=== PATIENT | female | born 1970 | race Caucasian/White ===

== ENCOUNTER 2020-08-24 09:48 | Outpatient (REF) | payer MEDICAID, SELFPAY ==
--- NOTE | 2020-08-24 09:53 | MM_ITS ---
EXAMINATION: MM SCREENING DIGITAL BREAST TOMOSYNTHESIS, BILATERAL CLINICAL INFORMATION: Screening. Asymptomatic. The lifetime risk of breast cancer based on the Tyrer-Cuzick Model is 7%. COMPARISON: Mammography: 08/19/2019, 08/11/2018, 12/03/2016 TECHNIQUE: Digital breast tomosynthesis is performed in both the craniocaudal and mediolateral oblique views along with computer-aided detection (CAD). Synthesized 2D images are generated from the tomosynthesis. Additional right CC view is provided. FINDINGS: The breasts are extremely dense, which lowers the sensitivity of mammography (ACR BI-RADS breast composition Category d). Parenchymal pattern is similar to prior studies. There is no interval mass or architectural abnormality or abnormal calcifications. There is a biopsy clip marker again seen on right overlying oval area of asymmetry 5:30 o'clock position mid depth. Low right axillary tail node again seen upper right breast on MLO view. The skin contours are smooth. No significant changes. MM/MM tomosynthesis screening BI IMPRESSION: No significant changes from prior studies. ASSESSMENT: BI-RADS 2: Benign RECOMMENDATION: Routine annual mammography screening. This patient's information was entered into a reminder system with a target due date for their next mammogram.
== END 2020-08-24 09:49 | disposition home or self-care (01) ==
LOC: HO.MAMMO 09:48
PROVIDERS: PCP Nurse Practitioner Family; Visit Provider Nurse Practitioner Family
DX: Z12.31 Encounter for screening mammogram for malignant neoplasm of breast (principal)
CPT/HCPCS: 77063; 77067

== ENCOUNTER 2021-09-06 09:27 | Outpatient (REF) | payer MEDICAID, SELFPAY | END 2021-09-06 09:28 | disposition home or self-care (01) | LOC: HO.MAMMO 09:27 | PROVIDERS: PCP Internal Medicine; Visit Provider Internal Medicine | DX: Z13.89 Encounter for screening for other disorder (principal) ==

== ENCOUNTER 2021-10-18 09:00 | Outpatient (REF) | payer MEDICAID, SELFPAY ==
--- NOTE | ~2021-10-18 | MM_ITS ---
EXAMINATION: MM SCREENING DIGITAL BREAST TOMOSYNTHESIS, BILATERAL CLINICAL INFORMATION: Screening. Asymptomatic. Benign right ultrasound-guided biopsy 08/02/2015 (Apocrine microcysts and focal mild active chronic pericystic inflammation). The lifetime risk of breast cancer based on the Tyrer-Cuzick Model is 6%. COMPARISON: Mammography: 08/24/2020, 08/19/2019, 08/11/2018 TECHNIQUE: Digital breast tomosynthesis is performed in both the craniocaudal and mediolateral oblique views along with computer-aided detection (CAD). Synthesized 2D images are generated from the tomosynthesis. Additional right MLO view is provided. FINDINGS: The breasts are extremely dense, which lowers the sensitivity of mammography (ACR BI-RADS breast composition Category d). Biopsy clip marker overlying a smooth oval mass again noted right breast mid 5:30 o'clock position. Neither breast shows interval mass or architectural abnormality or abnormal calcifications. Parenchymal pattern is similar to prior studies. The axilla and skin contours are unremarkable. MM/MM tomosynthesis screening BI IMPRESSION: No significant changes from prior studies. ASSESSMENT: BI-RADS 2: Benign RECOMMENDATION: Routine annual mammography screening. This patient's information was entered into a reminder system with a target due date for their next mammogram.
== END 2021-10-18 09:01 | disposition home or self-care (01) ==
LOC: HO.MAMMO 09:00
PROVIDERS: PCP Internal Medicine; Visit Provider Internal Medicine
DX: Z12.31 Encounter for screening mammogram for malignant neoplasm of breast (principal)
CPT/HCPCS: 77063; 77067

== ENCOUNTER → 2022-09-17 11:40 | Outpatient (BNVA) | payer MEDICAID, SELFPAY | PROVIDERS: Visit Provider Student in an Organized Health Care Education/Training Program | DX: M65.4 Radial styloid tenosynovitis [de Quervain] (principal) | CPT/HCPCS: 99202 ==

== ENCOUNTER 2022-10-31 08:46 | Outpatient (REF) | payer MEDICAID, SELFPAY ==
--- NOTE | ~2022-10-31 | MM_ITS ---
EXAMINATION: MM SCREENING DIGITAL BREAST TOMOSYNTHESIS, BILATERAL CLINICAL INFORMATION: Screening. Asymptomatic. The lifetime risk of breast cancer based on the Tyrer-Cuzick Model is 6%. COMPARISON: Mammography: 10/18/2021, 08/24/2020, 08/19/2019, 08/11/2018 TECHNIQUE: Digital breast tomosynthesis is performed in both the craniocaudal and mediolateral oblique views along with computer-aided detection (CAD). Synthesized 2D images are generated from the tomosynthesis. FINDINGS: The breasts are extremely dense, which lowers the sensitivity of mammography (ACR BI-RADS breast composition Category d). Parenchymal pattern is similar to prior studies. There is biopsy clip marker again seen anterior lower inner right breast. Parenchymal pattern is similar to prior studies with scattered stable asymmetries. No developing density or architectural abnormality or abnormal calcifications. The axilla and skin contours are unremarkable. MM/MM tomosynthesis screening BI IMPRESSION: No mammographic evidence of malignancy. ASSESSMENT: BI-RADS 2: Benign RECOMMENDATION: Routine annual mammography screening. This patient's information was entered into a reminder system with a target due date for their next mammogram.
== END 2022-10-31 08:47 | disposition home or self-care (01) ==
LOC: HO.MAMMO 08:46
PROVIDERS: Visit Provider Internal Medicine
DX: Z12.31 Encounter for screening mammogram for malignant neoplasm of breast (principal)
CPT/HCPCS: 77063; 77067

== ENCOUNTER 2023-08-23 18:19 | Outpatient (REF) | payer MEDICAID, SELFPAY ==
[2023-08-27 08:53] LABS: HPV mRNA E6/E7 rflx Not Detected (Not Detected)
== END 2023-08-23 18:20 | disposition home or self-care (01) ==
LOC: HO.HHCLNP 18:19
PROVIDERS: Visit Provider Advanced Practice Midwife
DX: Z12.4 Encounter for screening for malignant neoplasm of cervix (principal); Z11.51 Encounter for screening for human papillomavirus (HPV)
CPT/HCPCS: 87624; 88142

== ENCOUNTER 2023-11-06 08:49 | Outpatient (REF) | payer MEDICAID, SELFPAY ==
--- NOTE | ~2023-11-06 | MM_ITS ---
EXAMINATION: MM SCREENING DIGITAL BREAST TOMOSYNTHESIS, BILATERAL CLINICAL INFORMATION: Screening. Asymptomatic. COMPARISON: Mammography: This study is compared with prior exams dating back to 2018. TECHNIQUE: Digital breast tomosynthesis is performed in both the craniocaudal and mediolateral oblique views along with computer-aided detection (CAD). Synthesized 2D images are generated from the tomosynthesis. FINDINGS: The breasts are extremely dense, which lowers the sensitivity of mammography (ACR BI-RADS breast composition Category d). There are no significant masses, abnormal calcifications, or other abnormalities. There is a biopsy tissue marker in an oval, benign mass at the 6:00 region of the right breast. MM/MM tomosynthesis screening BI IMPRESSION: No mammographic evidence of malignancy. ASSESSMENT: BI-RADS BI-RADS 2 - Benign Findings RECOMMENDATION: Routine annual mammography screening. 1 year F/U This examination should not preclude the clinical evaluation of a suspicious palpable abnormality. This patient's information was entered into a reminder system with a target due date for their next mammogram.
== END 2023-11-06 08:50 | disposition home or self-care (01) ==
LOC: HO.MAMMO 08:49
PROVIDERS: Absent Provider Advanced Practice Midwife; Visit Provider Internal Medicine
DX: Z12.31 Encounter for screening mammogram for malignant neoplasm of breast (principal)
CPT/HCPCS: 77063; 77067

== ENCOUNTER → 2023-11-06 09:00 | Outpatient (BNV) | payer MEDICAID, SELFPAY | PROVIDERS: Absent Provider Advanced Practice Midwife; Visit Provider Radiology Diagnostic Radiology | DX: Z12.31 Encounter for screening mammogram for malignant neoplasm of breast (principal) | CPT/HCPCS: 77063; 77067 ==

== ENCOUNTER 2024-09-08 11:31 | Outpatient (REF) | payer MEDICAID, SELFPAY ==
[2024-09-08 13:32] LABS: Anion Gap 10 (12-20); Blood Urea Nitrogen 9 mg/dL (9-16); Calcium 9.7 mg/dL (8.4-10.2); Carbon Dioxide 27 mmol/L (22-29); Chloride 108 mmol/L (96-108); Estimated Glomerular Filt Rate > 60; Glucose Random 109 mg/dL (60-115); Sodium 141 mmol/L (135-145)
[2024-09-08 13:35] LABS: Estimated Average Glucose 128 mg/dL; Hemoglobin A1C 156.2119 umol/L; Hemoglobin A1c % 6.1 % (<6.0); Total Hemoglobin (HGBA1C) 3662.0372 umol/L
== END 2024-09-08 11:32 | disposition home or self-care (01) ==
LOC: HO.HHCL 11:31
PROVIDERS: Visit Provider Nurse Practitioner
DX: R73.03 Prediabetes (principal)
CPT/HCPCS: 36415; 80048; 83036

== ENCOUNTER 2024-12-27 10:01 | Outpatient (REF) | payer MEDICAID, SELFPAY ==
--- OUTSIDE RECORDS SUMMARY | 2024-12-27 11:26 | XMS_ITS | Clinical Summary ---
Author Organization [address] [facility] Address [address] [place] [address] Phone Care Team Providers Care Base Draw Operator Name Role Phone Physician, No Pcp Primary Care Provider Unavaila ble Encounters Date Type Department Care Team Description 11/24/2024 Lab Requisition [facility] - Main Lab [address] [facility] [place] [address] Tarun Lopez DDS Cyst of oral region, unspecified from Last 3 Months Social History Tobacco Use Types Packs/Day Years Used Date Smoking Tobacco: Never Assessed Comments Unknown Sex and Gender Information Value Date Recorded Sex Assigned at Not on file Legal Sex Female 12:39 PM EST Gender Identity Not on file Sexual Orientation Not on file Plan of Treatment Health Maintenance Due Date Last Done Comments Breast Cancer Screening 1968 DTaP,Tdap,and Td Vaccines (1 - Tdap) 1987 Hepatitis B Vaccines (1 of 3 - 19+ 3-dose series) 1987 Cervical Cancer Screening: P ap Smear 1989 Pneumococcal Vaccine: 50+ Ye ars (1 of 1 - PCV) 2018 Zoster Vaccines (1 of 2) 2018 COVID-19 Vaccine ( - 2023-2 5 season) 2024 Influenza Vaccine (#1) 2024 Colorectal Cancer Screening: Colonoscopy 11/24/2024 Depression Screening 11/24/2024 HIV Screening 11/24/2024 Hepatitis C Screening 11/24/2024 Social Influencers of Health Screening 11/24/2024 HIB Vaccines Aged Out No longer eligi ble based on patient's age to complete this topic HPV Vaccines Aged Out No longer eligi ble based on patient's age to complete this topic Hepatitis A Vaccines Aged Out No long er eligible based on patient's age to complete this topic IPV Vaccines Aged Out No longer eligi ble based on patient's age to complete this topic MMR Vaccines Aged Out No longer eligi ble based on patient's age to complete this topic Meningococcal ACWY Vaccine Aged Out N o longer eligible based on patient's age to complete this topic Meningococcal B Vacine Aged Out No lo nger eligible based on patient's age to complete this topic Pneumococcal Vaccine: Pediat rics (0 to 5 Years) and At-Risk Patients (6 to 64 Years) Aged Out No longer eligible b ased on patient's age to complete this topic RSV Immunization Patients Un anabela 20 months Aged Out No longer eligible b ased on patient's age to complete this topic Varicella Vaccines Aged Out No longer eligible based on patient's age to complete this topic Procedures Procedure Name Priority Date/Time Associated Diagnosis Comments TISSUE EXAM Routine 11/23/2024 Cyst of oral region, unspecified from Last 3 Months Results * Tissue Exam (11/23/2024) Final Diagnosis Oral Cavity, vestibular ridge/buccal of #28 cyst: -BENIGN UNILOCULAR SQUAMOUS CYST, RUPTURED, INFLAMMED -GMS stain: negative (Control appropriate) 12:16 PM [facility] Clinical Information Oral mucosa, buccal cervical of t. #28 54 y.o. female - no recent illness, injury or hospitalization Cyst found on the vestibular ridge/buccal of #28 12:16 PM EST [facility] Gross Description A. Oral Cavity, vestibular ridge/buccal of #28 cyst: Labeled oral mucosa . Received in formalin is a 1.1 x 0.5 x 0.3 cm white-stewart rubbery tissue fragment surface by a smooth, glistening mucosa. The specimen is inked blue and bisected. The cut surfaces are [id number] solid. The specimen is wrapped in paper and entirely submitted one cassette, two pieces, multiple levels on one slide. KIMMIE 12:16 PM [facility] Disclaimer NOTE: The immunohistochemical tests and in situ hybridization tests were developed and their performance characteristics were determined by [facility]. They have not been cleared or approved by the U.S. Food and Drug Administration. The FDA has determined that such clearance or approval is not necessary. These tests are used for clinical purposes. They should not be regarded as investigational or for research. This laboratory is certified under the Clinical Laboratory Improvement Amendments of 1988 (CLIA) as qualified to perform high complexity clinical laboratory testing. (controls appropriate) Unless otherwise specified, all tissue is 10% NB formalin fixed and paraffin embedded. 12:16 PM EST [facility] Tissue Oral cavity structure / Unknown 11/23/2024 11/24/2024 12:49 PM EST us Tarun Lopez DDS LAB PATHOLOGY ORDERABLES Fin al Result [facility] [address] [place] [address], from Last 3 Months Insurance MEDICAID - [place] Care Teams Base Draw Operator Relationship Specialty Start Date End Date Physician, No Pcp PCP - General 11/27/24
--- OUTSIDE RECORDS SUMMARY | 2024-12-27 11:26 | XMS_ITS | Encounter Summary ---
Author Organization [facility] Address [address] [place] [address] Care Team Providers Care Computer Support Analyst Name Role Phone Physician, No Pcp Primary Care Provider Unavaila ble Encounter Details Date Type Department Care Team (Late st Contact Info) Description 11/24/2024 Lab Requisition [facility] - Main Lab [address] [facility] [place] [address] Tarun Lopez DDS [address] [place] [address] Cyst of oral region, unspecified Social History Tobacco Use Types Packs/Day Years Used Date Smoking Tobacco: Never Assessed Comments Unknown Sex and Gender Information Value Date Recorded Sex Assigned at Not on file Legal Sex Female 12:39 PM EST Gender Identity Not on file Sexual Orientation Not on file documented as of this encounter Plan of Treatment Not on file documented as of this encounter Procedures Procedure Name Priority Date/Time Associated Diagnosis Comments TISSUE EXAM Routine 11/23/2024 Cyst of oral region, unspecified documented in this encounter Results * Tissue Exam (11/23/2024) Final Diagnosis Oral Cavity, vestibular ridge/buccal of #28 cyst: -BENIGN UNILOCULAR SQUAMOUS CYST, RUPTURED, INFLAMMED -GMS stain: negative (Control appropriate) 12:16 PM EST [facility] Clinical Information Oral mucosa, buccal cervical of t. #28 54 y.o. female - no recent illness, injury or hospitalization Cyst found on the vestibular ridge/buccal of #28 12:16 PM EST [facility] Gross Description A. Oral Cavity, vestibular ridge/buccal of #28 cyst: Labeled oral mucosa . Received in formalin is a 1.1 x 0.5 x 0.3 cm white-stewart rubbery tissue fragment surface by a smooth, glistening mucosa. The specimen is inked blue and bisected. The cut surfaces are [id number] solid. The specimen is wrapped in paper and entirely submitted one cassette, two pieces, multiple levels on one slide. KIMMIE 12:16 PM EST [facility] Disclaimer NOTE: The immunohistochemical tests and in situ hybridization tests were developed and their performance characteristics were determined by [facility]. They have not been [...] fixed and paraffin embedded. 12:16 PM EST [facility] Tissue Oral cavity structure / Unknown 11/23/2024 11/24/2024 12:49 PM EST Tarun Lopez DDS LAB PATHOLOGY ORDERABLES Fin al Result [facility] [address] [place] [address], documented in this encounter Visit Diagnoses Diagnosis Cyst of oral region, unspecified documented in this encounter Care Teams Computer Support Analyst Relationship Specialty Start Date End Date Physician, No Pcp PCP - General 11/27/24 documented as of this encounter
--- OUTSIDE RECORDS SUMMARY | 2024-12-27 11:27 | XMS_ITS | Encounter Summary ---
Author Organization [employer] Address [address] [facility] [address] [place] [address] Care Team Providers Care Digital Designer Name Role Phone Diana Clements NP Primary Care Provider [phone] Reason for Visit * Reason Onset Date Comments chartprep 12/06/2024 Encounter Details Date Type Department Care Team (Late st Contact Info) Description 12/06/2024 Telephone [facility] [address] [place] [address] Ashlyn Johnson [place] chartprep Social History Tobacco Use Types Packs/Day Years Used Date Smoking Tobacco: Never Passive Smoke Exposure: Never Smokeless Tobacco: Never Alcohol Use Standard Drinks/Week Comments Yes 0 (1 standard drink = 0.6 oz pur e alcohol) Alcohol Answer Date Recorded How often do you have a drink containing alcohol ? 1 09/08/2024 How many drinks containing a lcohol do you have on a typical day when you are drinking? 0 09/08/2024 How often do you have six or more drinks on one occasion? 0 09/08/2024 Depression Answer Date Recorded Patient Health Questionnaire-9 Score 0 08/09/2024 Patient Health Questionnaire-9 Score 0 08/09/2024 Last PHQ-9: Questionnaire Data Not on file 1 10/09/2023 Housing Stability Answer Date Recorded What is your housing situation today? I have lupe kwok 08/09/[address] you li ve. Do you have problems with any of the following? None of the above 08/09/2024 Food Insecurity Answer Date Recorded Within the past 12 months, y ou worried that your food would run out before you got money to buy more: Never True 08/09/2024 Within the past 12 months,th e food you bought just didn't last and you didn't have enough money to get more: Never True 03/2024 Transportation Answer Date Recorded In the past 12 months, has l ack of transportation kept you from medical appts, meetings, work or from getting things needed for daily living? No 08/09/2024 Utilities Answer Date Recorded In the past 12 months, has t he electric, gas, oil or water company threatened to shut off services in your home? No 08/09/2024 Depression Answer Date Recorded Patient Health Questionnaire-2 Score 0 08/09/2024 Internet Access Answer Date Recorded Internet Access Q1 Yes 08/09/2024 Internet Access Q2 Not on file 08/09/2024 Comments No Sex and Gender Information Value Date Recorded Sex Assigned at Female 08/03/2022 10:17 AM EDT Legal Sex Female 10:17 AM EDT Gender Identity Female 08/03/2022 10:17 AM EDT Sexual Orientation Straight 08/03/2022 10 :17 AM EDT documented as of this encounter Miscellaneous Notes * Telephone Encounter - Ashlyn Johnson [place] - 12/06/2024 10:55 AM EST Chart Prep Labs: done except cologuard screening Images: not done BD dexa and mammogram order Vaccines due: yes Pneumo,Hep B Referrals: no showed on 09/14/24-09/15/24 Screenings: colonoscopy , mammogram Overdue care gaps: n/a documented in this encounter Plan of Treatment Upcoming Encounters Date Type Department Care Team (Late st Contact Info) Description 12/28/2024 8:00 AM EDT Office Visit [facility] [address] [place] [address] Tarun Lopez DDS [address] [place] [address] 01/08/2025 3:30 PM EDT Office Visit [facility] ADULT DENTAL [address] [place] [address] Sim Emerson DMD [address] [place] [address] documented as of this encounter Visit Diagnoses Not on filedocumented in this encounter Additional Health Concerns Assessment Noted Time PHQ-9 Depression Total Score: 0 08/09/20 24 9:06 AM EST documented as of this encounter Care Teams Digital Designer Relationship Specialty Start Date End Date Diana Clements NP [address] [place] [id number] PCP - General Family Medicine 07/20/24 documented as of this encounter
--- OUTSIDE RECORDS SUMMARY | 2024-12-27 11:27 | XMS_ITS | Encounter Summary ---
Author Organization [employer] Address [address] [facility] [address] [facility] [address] [place] [address] Care Team Providers Care Security Messenger Name Role Phone Diana Clements NP Primary Care Provider [phone] Encounter Details Date Type Department Care Team (Latest Contact Info) Description 12/08/2024 Travel Social History Tobacco Use Types Packs/Day Years [...] AM EDT documented as of this encounter Plan of Treatment Upcoming Encounters Date Type Department Care Team (Late st Contact Info) Description 12/28/2024 8:00 AM EDT Office Visit [facility] ADULT DENT[facility] [address] [place] [address] Tarun Lopez DDS [address] [place] [address] 01/08/2025 3:30 PM EDT Office Visit [facility] ADULT [facility] [address] [place] [address] Sim Emerson, DMD [address] [place] [address] documented as of this encounter Visit Diagnoses Not on filedocumented in this encounter Additional Health Concerns Assessment Noted Time PHQ-9 Depression Total Score: 0 08/09/20 24 9:06 AM EST documented as of this encounter Care Teams Security Messenger Relationship Specialty Start Date End Date Diana Clements NP [address] [place] [address] PCP - General Family Medicine 07/20/24 documented as of this encounter
--- OUTSIDE RECORDS SUMMARY | 2024-12-27 11:27 | XMS_ITS | Encounter Summary ---
Author Organization [employer] [facility] [employer] Address [address] [facility] [address] [place] [address] Care Team Providers Care Receptionist/Telephone Operator Name Role Phone Diana Clements NP Primary Care Provider [phone] Encounter Details Date Type Department Care Team ([facility] st Contact Info) Description 12/15/2024 Population Health Risk Score [facility] (C[facility]) Department [address] [address] Provider, Population Health Generic Social History Tobacco Use Types Packs/Day Years [...] Description 12/28/2024 8:00 AM EDT Office Visit [facility] ADULT DENTAL [address] [place] [address] Tarun Lopez DDS [address] [place] [address] 01/08/2025 3:30 PM EDT Office Visit [facility] ADULT DENTAL [address] [place] [address] Sim Emerson, DMD [address] [place] [address] documented as of this encounter Visit Diagnoses Not on filedocumented in this encounter Additional Health Concerns Assessment Noted Time PHQ-9 Depression Total Score: 0 08/09/20 9:06 AM EST documented as of this encounter Care Teams Receptionist/Telephone Operator Relationship Specialty Start Date End Date Diana Clements NP [address] [place] [address] PCP - General Family Medicine 07/20/24 documented as of this encounter
--- OUTSIDE RECORDS SUMMARY | 2024-12-27 11:27 | XMS_ITS | Encounter Summary ---
Author Organization [employer] Address [address] [facility] 7 [place] [address] Care Team Providers Care Staff Physician Name Role Phone Diana Clements NP Primary Care Provider [phone] Reason for Visit * Reason Comments Follow-up Encounter Details Date Type Department Care Team ([facility] Contact Info) Description 12/08/2024 10:00 AM EST Office Visit [facility] [address] [place] [address] Diana Clements NP [address] [place] [address] Routine adult health maintenance (Primary Dx); Prediabetes; Dietary counseling; Exercise counseling; Hypercholesterolemia Social History Tobacco Use Types Packs/Day Years [...] AM EDT documented as of this encounter Last Filed Vital Signs Vital Sign Reading Time Taken Comments Blood Pressure 130/82 12/08/2024 9:59 AM EST Pulse 82 12/08/2024 9:59 AM EST Temperature 37 ??C (98.6 ??F) 12/08/2024 9:59 AM EST Respiratory Rate 18 12/08/2024 9:59 AM EST Oxygen Saturation 97% 12/08/2024 9:59 AM EST Inhaled Oxygen Concentration - - Weight 65.1 kg (143 lb 9.6 oz) 12/08/2024 9:59 A M EST Height 154.9 cm (5' 1 ) 12/08/2024 9:59 AM EST Body Mass Index 27.13 12/08/2024 9:59 AM EST documented in this encounter Progress Notes * Diana Clements NP - 12/08/2024 10:00 AM EST Subjective: Cece Luna 54 y.o. female with past medical history of hypercholesterolemia, prediabetes presents for health maintenance. Denies recent illness, injury, or hospitalization. HPI Doing well overall. Has no acute complaints at this time. States the only medication she is taking at this time consistently is rosuvastatin. She is decided to not take the paroxetine prescribed for menopausal symptoms. Completed 09/26 revealed mildly elevated A1c of 6.1% compared to 6% 2 years ago. Patient reports engaging in exercises 2x per week for 15 min. Diet: rice beans, chicken, porkchop, salad. Cooks at home. Drinks coke 3x a week. Previously ordered mammogram and DEXA screening not completed. States she has an appointment for mammogram in 2 weeks. But missed the appointment for DEXA scan. Review of Systems Constitutional: Negative. Negative for chills and fever. Respiratory: Negative for chest tightness and shortness of breath. Cardiovascular: Negative for chest pain. Gastrointestinal: Negative for abdominal pain, constipation, diarrhea and nausea. Genitourinary: Negative for dysuria. Musculoskeletal: Negative for arthralgias, back pain, myalgias and neck pain. Skin: Negative. Negative for rash and wound. Neurological: Negative for weakness, light-headedness and headaches. Psychiatric/Behavioral: Negative for behavioral problems, confusion, decreased concentration and suicidal ideas. Objective: Visit Vitals BP 130/82 (BP Location: Left arm, Patient Position: Sitting, BP Cuff Size: Adult) Pulse 82 Temp 98.6 ??F (37 ??C) (Oral) Resp 18 Patient Active Problem List Diagnosis Hypercholesterolemia Vitamin D deficiency Dental abscess Dental calculus Periodontal disease Acute otitis media Screening for colon cancer Encounter for annual routine gynecological examination Encounter for routine adult health examination without abnormal findings Hot flashes due to menopause Prediabetes Lateral radicular cyst Retained dental root Current Outpatient Medications on File Prior to Visit Medication Sig Dispense Refill acetaminophen (Tylenol) 500 MG tablet Take 1 tablet (500 mg) by mouth every 6 (six) hours if neededfor mild pain for up to 20 doses. (Patient not taking: Reported on 12/05/2024) 30 tablet 0 cholecalciferol (Vitamin D-3) 20 MCG (800 UNIT) tablet Take 1 tablet (20 mcg) by mouth Once per day. 30 tablet 3 ibuprofen 600 MG tablet Take 1 tablet (600 mg) by mouth every 6 (six) hours if needed for mild painfor up to 20 doses. (Patient not taking: Reported on 12/05/2024) 20 tablet 0 rosuvastatin (Crestor) 5 MG tablet TAKE 1 TABLET BY MOUTH AT BEDTIME (Patient not taking: Reported on 12/05/2024) 90 tablet 1 [DISCONTINUED] PARoxetine (Paxil) 10 MG tablet Take 1 tablet (10 mg) by mouth at bedtime. (Patient not taking: Reported on 12/05/2024) 30 tablet 2 No current facility-administered medications on file prior to visit. Physical Exam Vitals reviewed. Constitutional: General: She is not in acute distress. Appearance: Normal appearance. She is not ill-appearing. HENT: Head: Normocephalic and atraumatic. Right Ear: External ear normal. Left Ear: External ear normal. Nose: Nose normal. Eyes: General: No scleral icterus. Extraocular Movements: Extraocular movements intact. Cardiovascular: Rate and Rhythm: Normal rate and regular rhythm. Pulses: Normal pulses. Heart sounds: Normal heart sounds. Pulmonary: Effort: Pulmonary effort is normal. No respiratory distress. Breath sounds: Normal breath sounds. Musculoskeletal: General: Normal range of motion. Cervical back: Normal range of motion. Skin: General: Skin is warm and dry. Neurological: General: No focal deficit present. Mental Status: She is alert and oriented to person, place, and time. Gait: Gait normal. Psychiatric: Mood and Affect: Mood normal. Behavior: Behavior normal. Problem List Items Addressed This Visit Hypercholesterolemia -Continue rosuvastatin 5 mg despite stable lipids in 2021 as primary prevention -Discussed repeat labs at follow-up visit in 6 months Prediabetes -Discussed medication management with metformin, and nonpharmacological management with diet and exercise -Patient declined medications, would rather engage in diet and exercise modifications -Declined nutrition referral -Dietary Recommendations: Fruits, vegetables, whole grains, protein foods, and fat-free or low-fat dairy products are healthychoices. Eat different types of protein foods in your diet. This can include seafood, lean meats, poultry, beans, peas, lentils, nuts, seeds, soy products, and eggs. Limit foods and beverages higher in added sugars, saturated fat, and sodium. Exercise Recommendations: At least 150 minutes of moderate-intensity physical activity per week, or an equivalent combinationof moderate- and vigorous-intensity activity -Plan to recheck A1c in 6 months Other Visit Diagnoses Routine adult health maintenance - Primary -Provided phone number for central scheduling to schedule DEXA scan appointment -Previously ordered Cologuard not completed. revisit discussion at follow-up Dietary counseling Exercise counseling Follow-up 6 months routine care or sooner as needed Belgian Translation: Provided by [facility] [employer] Technical Architect Phone Service Romel ID # [id number] documented in this encounter Miscellaneous Notes * Patient Education Note - Diana Clements NP - 12/08/2024 3:16 PM EST Images from the original note were not included. Patient Education Table of Contents Plan de alimentaci?n cardiosaludable (Heart-Healthy Eating Plan) To view videos and all your education online visit, [email or web address] or scan this QR code with your smartphone. Access to this content will in one year. Plan de alimentaci?n cardiosaludable Heart-Healthy Eating Plan Llevar caden dieta saludable es importante para la talha del coraz?n. Un plan de alimentaci?n cardiosaludable incluye: Consumir menos grasas no saludables. Consumir m?s grasas saludables. Consumir menos binh en los alimentos. La binh tambi?n se denomina sodio. Realizar otros cambios en ferguson dieta. Hable con el m?dico o con un especialista en alimentaci?n (nutricionista) para crear un plan de alimentaci?n que sea adecuado para usted. ?En qu?? consiste el plan? El m?dico puede recomendarle un plan de alimentaci?n que incluya lo siguiente: Grasas totales: % o menos del total de calor?as por d?a. Grasas saturadas: % o menos del total de calor?as por d?a. Colesterol: menos de mg por d?a. Sodio: menos de mg al d?a. ?Cu?les son algunos consejos para seguir myesha plan? Al cocinar Evite irving?r los alimentos. En cambio, trate de cocinarlos en el horno, en la plancha o en la reji, o hervirlos. Tambi?n puede reducir las grasas de la siguiente forma: Quite la piel de las aves. Quite todas las grasas visibles de las kali. Cocine al vapor las verduras en agua o caldo. Planificaci?n de las comidas En las comidas, divida ferguson plato en cuatro partes iguales: ? Llene la mitad del plato con verduras y ensaladas de hojas verdes. ? Llene un cuarto del plato con cereales integrales. ? Llene un cuarto del plato con alimentos con prote?duc magras. De 2? a 4 tazas de verduras por d?a. Caden taza de verduras es: ? 1 taza (91?g) de br?coli o coliflor. ? 2 zanahorias medianas. ? 1 pimiento morr?n ivette. ? 1 batata ivette. ? 1 tomate ivette. ? 1 papa tatyana mediana. ? 2 tazas (150?g) de verduras de hojas verdes crudas. Coma de 1? a 2? tazas de fruta cada d?a. Caden taza de fruta es: ? 1 manzana luciano?a. ? 1 banana ivette ? 1 taza (237?g) de fruta mezclada, ? 1 naranja ivette, ? ??taza (82?g) de frutas disecadas. ? 1 taza (240?ml) de jugo 100?% de frutas. Consuma m?s alimentos que tengan fibra soluble. Ellos son las manzanas, el br?coli, las zanahorias,los frijoles, los guisantes y la cebada. Trate de consumir de 20?a 30?g de fibra por d?a. Coma 4 o 5?porciones de haylee secos, legumbres y semillas por semana: ? 1 porci?n de frijoles o legumbres secos equivale a ? de taza (90?g) cocinados. ? 1 porci?n de haylee secos es ? oz (12 almendras, 24 pistachos o 7 mitades de nueces). ? 1 porci?n de semillas equivale a ? oz (8?g). Informaci?n general Coma m?s comidas caseras. Coma menos comida de restaurantes, buf?s y comida r?pida. Limite o evite el alcohol. Limite los alimentos con alto contenido de almid?n y az?car. Evite las comidas fritas. Baje de peso si es necesario. Intente llevar un registro de la cantidad de binh (sodio) que ingiere. [place] es importante si tiene presi?n arterial terry. P?silverio a ferguson m?dico que le d?? m?s informaci?n al respecto. Trate de incorporar comidas vegetarianas cada semana. Grasas Elija las grasas saludables. Estas incluyen aceite de holbrook y de canola, semillas de sterling, nueces, almendras y semillas. Consuma m?s grasas omega-3. Estas incluyen salm?n, caballa, donnell, at?n, aceite de sterling y semillas de sterling molidas. Intente comer pescado al menos dos veces por semana. Tona las etiquetas de los alimentos. Evite los alimentos que contienen grasas trans o altas cantidades de grasas saturadas. Limite el consumo de grasas saturadas. ? Estas se encuentran frecuentemente en productos de origen animal, ralph kali, mantequilla y crema. ? Tambi?n se encuentran en alimentos de origen vegetal, ralph el aceite de hoover, el aceite de palmiste y el aceite de yenni. Evite los alimentos con aceites parcialmente hidrogenados. Estos tienen grasas trans. Entre los ejemplos, se incluyen margarinas en eryn, algunas margarinas untables, galletas dulces y saladas y otros productos horneados. ?Qu?? alimentos rodney comer? Frutas Frutas frescas, en conserva (en ferguson jugo natural) o frutas congeladas. Verduras Verduras frescas o congeladas (crudas, al vapor, asadas o grilladas). Ensaladas de hojas verdes. Cereales La mayor?a de los cereales. Elija cristopher siempre mis integral y cereales integrales. Arroz y pastas, incluido el arroz integral y las pastas elaboradas con mis integral. Kali y otras prote?duc Kali magras de res, ternera, cerdo y knight a las que se les haya quitado la grasa visible. Sumit y pavo sin piel. Todos los pescados y mariscos. Shiraz giovanna, herber, fais?n y ned. Claras de huevo o sustitutos del huevo bajos en colesterol. Porotos, guisantes y lentejas secos y tofu. Semillas y la mayor?a de los haylee secos. L?cteos Quesos descremados y semidescremados, entre ellos, ricota y mozzarella. Leche descremada o al 1?% que sea l?quida, en polvo o evaporada. Shawn de leche elaborado con leche semidescremada. Yogur descremado o semidescremado. Grasas y aceites Margarinas no hidrogenadas (sin grasas trans). Aceites vegetales, incluido el de soja, s?samo, girasol, holbrook, man?, c?rtamo, ma?z, canola y semillas de algod?n. Ali?os para ensalada o mayonesa elaborados con aceite vegetal. Bebidas Agua mineral. T?? y caf?. Gaseosas diet?milton. Dulces y postres Sorbete, gelatina y helado de frutas. Luciano?as cantidades de chocolate amargo. Limite todos los dulces y postres. Ali?os y condimentos Todos los ali?os y condimentos. Es posible que los productos que se enumeran m?s arriba no constituyan caden lista completa de los alimentos y las bebidas que puede chelsie. Consulte a un nutricionista para conocer m?s opciones. ?Qu?? alimentos rodney evitar? Frutas Fruta enlatada en cassie?bar espeso. Frutas con salsa de crema o mantequilla. Frutas fritas. Limite elconsumo de yenni. Verduras Verduras cocinadas con salsas de queso, crema o mantequilla. Verduras fritas. Cereales Panes elaborados con grasas saturadas o trans, aceites o leche entera. Croissants. Panecillos dulces. Rosquillas. Galletas con alto contenido de grasas, ralph las que contienen queso. Kali y otras prote?duc Kali grasas, ralph perros calientes, costillas de res, salchichas, tocino, asado de costillar o chulet?n. Fiambres con alto contenido de grasas, ralph elvis y mortadela. Caviar. Shiraz y ganso dom?sticos. V?sceras, ralph h?gado. L?cteos Crema, crema agria, queso crema y queso cottage con crema. Quesos enteros. Leche entera o al 2?% que sea l?quida, evaporada o condensada. Shawn de leche entero. Salsa de crema o queso con alto contenido de grasas. Yogur elaborado con leche entera. Grasas y aceites Grasa de carne o materia grasa. Scio de cacao, aceites hidrogenados, aceite de hoover, aceite de yenni, aceite de palmiste. Grasas y materias grasas s?lidas, incluida la grasa del tocino, el cerdo chuck, la manteca de cerdo y la mantequilla. Sustitutos no l?cteos de la crema. Aderezos para ensalada con queso o crema agria. Bebidas Refrescos regulares y jugos con agregado de az?car. Dulces y postres Glaseados. Pudin. Galletas dulces. Bizcochuelos. Pasteles. Chocolate con leche o chocolate french. Cassie?bares con mantequilla. Helados o bebidas elaboradas con helado con alto contenido de grasas. Esta no es caden lista completa de los alimentos y las bebidas que se deben evitar. Consulte a un nutricionista para obtener m?s informaci?n. Resumen La planificaci?n de las comidas cardiosaludables incluye comer menos grasas poco saludables, comer m?s grasas saludables y hacer otros cambios en ferguson dieta. Siga caden dieta equilibrada. Esta incluye frutas y verduras, productos l?cteos descremados o semidescremados, prote?duc magras, haylee secos y legumbres, cereales integrales y aceites y grasas cardiosaludables. Esta informaci?n no tiene ralph fin reemplazar el consejo del m?dico. Aseg?rese de hacerle al m?dicocualquier pregunta que tenga. Document Released: 2013-03-21 Document Updated: 2022-11-11 Document Reviewed: 2022-11-11 [employer] Patient Education ? 2024 [employer] * Assessment & Plan Note - Diana Clements NP - 12/08/2024 12:07 PM ESTAssociated Problem(s): Hypercholesterolemia -Continue rosuvastatin 5 mg despite stable lipids in 2021 as primary prevention -Discussed repeat labs at follow-up visit in 6 months * Assessment & Plan Note - Diana Clements NP - 12/08/2024 12:05 PM ESTAssociated Problem(s): Prediabetes -Discussed medication management with metformin, and nonpharmacological management with diet and exercise -Patient declined medications, would rather engage in diet and exercise modifications -Declined nutrition referral -Dietary Recommendations: Fruits, vegetables, whole grains, protein foods, and fat-free or low-fat dairy products are healthychoices. Eat different types of protein foods in your diet. This can include seafood, lean meats, poultry, beans, peas, lentils, nuts, seeds, soy products, and eggs. Limit foods and beverages higher in added sugars, saturated fat, and sodium. Exercise Recommendations: At least 150 minutes of moderate-intensity physical activity per week, or an equivalent combinationof moderate- and vigorous-intensity activity -Plan to recheck A1c in 6 months documented in this encounter Plan of Treatment Upcoming Encounters Date Type Department Care Team (Late st Contact Info) Description 12/28/2024 8:00 AM EDT Office Visit [facility] [address] [place] [address] Tarun Lopez DDS [address] [place] [address] 01/08/2025 3:30 PM EDT Office Visit [facility] [address] [place] [address] Sim Emerson, JASPER [address] [place] [address] documented as of this encounter Visit Diagnoses Diagnosis Routine adult health maintenance- Primary Prediabetes Other abnormal glucose Dietary counseling Dietary surveillance and counseling Exercise counseling Hypercholesterolemia Pure hypercholesterolemia documented in this encounter Additional Health Concerns Assessment Noted Time PHQ-9 Depression Total Score: 0 08/09/20 24 9:06 AM EST documented as of this encounter Care Teams Staff Physician Relationship Specialty Start Date End Date Diana Clements NP [address] [place] [address] PCP - General Family Medicine 07/20/24 documented as of this encounter
--- OUTSIDE RECORDS SUMMARY | 2024-12-27 11:27 | XMS_ITS | Encounter Summary ---
Author Organization [employer] Address [address] [facility] [address] [place] [address] Care Team Providers Care Paper Sorter And Counter Name Role Phone Diana Clements NP Primary Care Provider [phone] Reason for Visit * Reason Comments Consult Encounter Details Date Type Department Care Team ([facility] Contact Info) Description 12/11/2024 11:15 AM EDT Office Visit [facility] [address] [place] [address] Kinza Pena DMD Social History Tobacco Use Types Packs/Day Years [...] Sign Reading Time Taken Comments Blood Pressure 126/76 12/11/2024 11:24 AM EDT Pulse - - Temperature - - Respiratory Rate - - Oxygen Saturation - - Inhaled Oxygen Concentration - - Weight - - Height - - Body Mass Index - - documented in this encounter Progress Notes * Kinza Pena DMD - 12/11/2024 11:15 AM EDT Dental procedures in this visit D9450 - CASE PRESENTATION, DETAILED AND EXTENSIVE TREATMENT PLANNING D9310 - CONSULTATION - DIAGNOSTIC SERVICE PROVIDED BY DENTIST OR PHYSICIAN OTHER THAN REQUESTING DENTIST OR PHYSICIAN (Completed) Service provider: Kinza Pena DMD Billing provider: Sim Emerson DMD Patient ID: Cece Luna is a 54 y.o. female. Time Out: Date: 12/11/2024 Location: [facility] Tooth: #30 Procedure: Exam Verified the above with patient, wet process assistant head miller, and provider. Confirmed via patient's chart, intraorally and by radiographs. Knife Glazer: Yes. Language: Indonesian. Knife Glazer's Name: Dory Villarreal 54 y.o. y/o female presents for limited exam with Dr. Kinza Pena DMD Medical history: Reviewed in EHR Vitals: Blood pressure 126/76. Allergies: Reviewed in EHR Medications: Reviewed in EHR Radiographs taken: None CHIEF COMPLAINT: I was told I need a consult on my lower right tooth. Discussion: Patient presents to [facility] RE: ENDO consult #30. Patient not experiencing any pain at thistime. Tooth #30 contains MO amalgam and fractured ML cusp. No pain on palpation. Slight discomfort to percussion. Inconsistent response to endo ice. Fluctuant mass noted on the buccal surface of the gingiva adjacent to tooth #30. Non- draining abscess. BOP on all surfaces and 7mm pockets on B aspects. Perio-endo related infection. Tooth #30 recommended for RCT, post core and full coverage crown taoist. Explained to patient she has bone loss in the area due to the infection and if the RCT does not resolve the infection, EXT may be advised in the future. Patient understands and accepts all recommendations and wishes to move forward with the proposed treatment plan. All patient questions answered. Patient comfortable upon dismissal. NV: RCT #30 Provider: Dr. Kinza Pena DMD Dental Conveyor Weigher Operator: Dory Villarreal Attending: Dr. Sim Emerson DMD * Sim Emerson DMD - 12/11/2024 11:15 AM EDT Reviewed. Sim Emerson DMD documented in this encounter Plan of Treatment Upcoming Encounters Date Type Department Care Team (Late st Contact Info) Description 12/28/2024 8:00 AM EDT Office Visit [facility] [address] [place] [address] Tarun Lopez DDS [address] [place] [address] 01/08/2025 3:30 PM EDT Office Visit [facility] [address] [place] [address] Sim Emerson DMD [address] [place] [address] documented as of this encounter Procedures Procedure Name Priority Date/Time Associated Diagnosis Comments CONSULTATION - DIAGNOSTIC SERVICE PROVIDED BY DENTIST OR PHYSICIAN OTHER THAN REQUESTING DENTIST OR PHYSICIAN Routine 12/11/2024 11:15 AM EDT CASE PRESENTATION, DETAILED AND EXTENSIVE TREATMENT PLANNING Routine 12/11/2024 11:15 AM EDT documented in this encounter Visit Diagnoses Not on filedocumented in this encounter Additional Health Concerns Assessment Noted Time PHQ-9 Depression Total Score: 0 08/09/20 9:06 AM EST documented as of this encounter Care Teams Paper Sorter And Counter Relationship Specialty Start Date End Date Diana Clements NP [address] [place] [address] PCP - General Family Medicine 07/20/24 documented as of this encounter
--- OUTSIDE RECORDS SUMMARY | 2024-12-27 11:27 | XMS_ITS | Encounter Summary ---
Author Organization [employer] Address [address] [facility] [address] [place] [address] Care Team Providers Care Light Oil Operator Name Role Phone Diana Clements NP Primary Care Provider [phone] Reason for Visit * Reason Comments Extraction Encounter Details Date Type Department Care Team ([facility] Contact Info) Description 12/05/2024 8:00 AM EST Office Visit [facility] ADULT DENTAL [address] [place] [address] Tarun Lopez, DDS [address] [place] [address] Retained dental root (Primary Dx) Social History Tobacco Use Types Packs/Day Years [...] the past 12 months, has t he [employer], gas, oil or water company threatened to [...] Sign Reading Time Taken Comments Blood Pressure 126/78 12/05/2024 7:53 AM EST Pulse - - Temperature - - Respiratory Rate - - Oxygen Saturation - - Inhaled Oxygen Concentration - - Weight - - Height - - Body Mass Index - - documented in this encounter Progress Notes * Tarun Lopez DDS - 12/05/2024 8:00 AM EST Patient ID: Cece Simons is a 54 y.o. female. Time Out: Timeout Date: 12/05/24, Timeout Time: 0751 (ext on tooth#13) Location: [facility] Tooth: Maxilla and #13 and biopsy results Procedure: Extraction Verified the above with patient, legal administrative assistant, and provider. Confirmed via patient's chart, intraorally and by radiographs. Clearing Tub Worker: not applicable Chief Complaint Patient presents with Extraction Medical Hx: Vitals: Blood pressure 126/78. Past Medical History: Diagnosis Date Bleeding gums Dental abscess High cholesterol No known health problems Pre-diabetes Medications: Outpatient Encounter Medications as of 12/05/2024 Medication Sig Dispense Refill cholecalciferol (Vitamin D-3) 20 MCG (800 UNIT) tablet Take 1 tablet (20 mcg) by mouth Once per day. 30 tablet 3 acetaminophen (Tylenol) 500 MG tablet Take 1 tablet (500 mg) by mouth every 6 (six) hours if neededfor mild pain for up to 20 doses. (Patient not taking: Reported on 12/05/2024) 30 tablet 0 ibuprofen 600 MG tablet Take 1 tablet (600 mg) by mouth every 6 (six) hours if needed for mild painfor up to 20 doses. (Patient not taking: Reported on 12/05/2024) 20 tablet 0 PARoxetine (Paxil) 10 MG tablet Take 1 tablet (10 mg) by mouth at bedtime. (Patient not taking: Reported on 12/05/2024) 30 tablet 2 rosuvastatin (Crestor) 5 MG tablet TAKE 1 TABLET BY MOUTH AT BEDTIME (Patient not taking: Reported on 12/05/2024) 90 tablet 1 No facility-administered encounter medications on file as of 12/05/2024. Consent Obtained: The risks, benefits, indications, potential complications, and alternatives were explained to the patient and informed consent was obtained with good understanding. Treatment Provided: Dental procedures in this visit D7250 - REMOVAL OF RESIDUAL TOOTH ROOTS (CUTTING PROCEDURE) 13 (Completed) Service provider: Tarun Lopez DDS Billing provider: Tarun Lopez DDS [id number] - CASE PRESENTATION, DETAILED AND EXTENSIVE TREATMENT PLANNING (Completed) Service provider: Tarun Lopez DDS Billing provider: Tarun Lopez DDS Diagnosis: Retained root # 13 ; Biopsy result # 28 buccal ridge = BENIGN UNILOCULAR SQUAMOUS CYST, RUPTURED, INFLAMED GMS stain: negative Topical: 20% Benzocaine Anesthesia: 2% Lidocaine (Xylocaine) w/ 1:100,000 epinephrine Number of Cartridges: 1 Injection Type: Buccal infiltration, Palatal infiltration, and Intrapapillary injection Confirmed profound anesthesia. Pharyngeal curtain and bite block placed. Removed tooth with elevators and forceps. Apices intact. Surgical Extraction: Yes, #13 Socket curetted & irrigated with sterile water. Compressed alveolar bone. Sutures: Chromic Gut All adjacent teeth intact. Hemostasis achieved. Complications: None. Pt tolerated procedure well. Pt states having analgesics at home. Written and verbal post-op instructions given. Patient discharged in stable condition; ambulatory, alert, and oriented. NV: F/U as needed / Referred to Dr. Mix Track Patrol: Yadira Joseph Dentist: Tarun Lopez DDS documented in this encounter Plan of Treatment Upcoming Encounters Date Type Department Care Team (Late st Contact Info) Description 12/28/2024 8:00 AM EDT Office Visit [facility] ADULT DENTAL [address] [place] [address] Tarun Lopez DDS [address] [place] [address] 01/08/2025 3:30 PM EDT Office Visit [facility] ADULT DENTAL [address] [place], [place] [phone] KandruSmi, DMD [address] [place] [address] documented as of this encounter Procedures Procedure Name Priority Date/Time Associated Diagnosis Comments 13 REMOVAL OF RESIDUAL TOOTH ROOTS (CUTTING PROCEDURE) Routine 12/05/2024 8:00 AM EST CASE PRESENTATION, DETAILED AND EXTENSIVE TREATMENT PLANNING Routine 12/05/2024 8:00 AM EST documented in this encounter Visit Diagnoses Diagnosis Retained dental root- Primary documented in this encounter Additional Health Concerns Assessment Noted Time PHQ-9 Depression Total Score: 0 08/09/20 9:06 AM EST documented as of this encounter Care Teams Light Oil Operator Relationship Specialty Start Date End Date Diana Clements NP [address] [place] [address] PCP - General Family Medicine 07/20/24 documented as of this encounter
--- OUTSIDE RECORDS SUMMARY | 2024-12-27 11:27 | XMS_ITS | Clinical Summary ---
Author Organization [employer] Address [address] [facility] [address] [place] [address] Care Team Providers Care Gill Box Fixer Name Role Phone Diana Clements NP Primary Care Provider [phone] Allergies Active Allergy Reactions Criticality Noted Date Comments Atorvastatin 12/22/2021 Other reaction(s): Myalgias Patient denies allergy to the medication Medications ibuprofen 600 MG tablet Take 1 tablet (600 mg) by mouth every 6 (six) hours if needed for mild pain for up to 20 doses. 20 tablet 01/07/20 24 Active Additional Information Patient not taking.Reported on 12/05/2024 acetaminophen (Tylenol) 500 MG tablet Take 1 tablet (500 mg) by mouth every 6 (six) hours if needed for mild pain for up to 20 doses. 30 tablet 07/05/20 24 Active Additional Information Patient not taking.Reported on 12/05/2024 rosuvastatin (Crestor) 5 MG tabletIndications: Hyperlipidemia, unspecified hyperlipidemia type TAKE 1 TABLET BY MOUTH AT BEDTIME 90 tablet 1 08/08/20 24 Active Additional Information Patient not taking.Reported on 12/05/2024 cholecalciferol (Vitamin D-3) 20 MCG (800 UNIT) tabletIndications: Hypovitaminosis D Take 1 tablet (20 mcg) by mouth Once per day. 30 tablet 3 09/08/20 24 025 Active amoxicillin (Amoxil) 500 MG capsule Take 1 capsule (500 mg) by mouth every 8 (eight) hours for 7 days. 21 capsule 12/26/19 25 025 Active PARoxetine (Paxil) 10 MG tabletIndications: Hot flashes due to menopause Take 1 tablet (10 mg) by mouth at bedtime. 30 tablet 2 09/08/20 24 025 Discontin ued(Patie nt refused) Active Problems Problem Noted Date Diagnosed Date Retained dental root 12/05/2024 Lateral radicular cyst 11/23/2024 Encounter for routine adult health examination without abnormal findings 09/08/2024 Hot flashes due to menopause 09/08/2024 Assessment & Plan (09/08/2024 1:12 PM EST): -discussed options for management with hormone therapy, herbal supplements, and integrative modalities after which she opted for pharm interventions -trial paroxetine over combi-patch per patients preference due to twice weekly changing of patches -medication side effects and monitoring discussed. Advised to call the clinic with any reactions and not to abruptly discontinue without medical advice -follow-up 6 weeks to assess dose effectiveness -patient verbalize understanding Prediabetes 09/08/2024 Assessment & Plan (12/08/2024 12:05 PM EST): -Discussed medication management with metformin, and nonpharmacological management with diet and exercise -Patient declined medications, would rather engage in diet and exercise modifications -Declined nutrition referral -Dietary Recommendations: Fruits, vegetables, whole grains, protein foods, and fat-free or low-fat dairy products are healthy choices. Eat different types of protein foods in your diet. This can include seafood, lean meats, poultry, beans, peas, lentils, nuts, seeds, soy products, and eggs. Limit foods and beverages higher in added sugars, saturated fat, and sodium. Exercise Recommendations: At least 150 minutes of moderate-intensity physical activity per week, or an equivalent combination of moderate- and vigorous-intensity activity -Plan to recheck A1c in 6 months Assessment & Plan (09/08/2024 1:14 PM EST): -A1c of 6% May 2022 -repeat testing ordered today -Healthy diet and exercise teaching completed: Eat a variety of fruit and vegetables, whole grains such as whole-wheat flour, bulgur (cracked wheat), oatmeal, and brown rice. Intake protein from beans, nuts, fish, and lean meats. Eat low-fat or fat- free dairy products. Limit highly processed foods such as hot dogs, sandwich meat, etc. Engage in minimum of 150 min of moderate intensity exercise weekly -will call with lab results Screening for colon cancer 08/09/2024 Assessment & Plan (08/09/2024 9:38 AM EST): Pt would like to proceed with cologard for screening, No personal history of colon polyps or colon cancer. No family history of colon cancer. Encounter for annual routine gynecological exami [facility] 08/09/2024 Assessment & Plan (08/09/2024 9:37 AM EST): Physical exam wnl Pap smear due 08/2026 Next mammo scheduled for 2024 Discussion regarding hot flashes, provided counseling surrounding treatment options for vasomotor symptoms, tx declined at this time but will discuss further if sx worsen. Plan to f/u with PCP for routine care in 09/2024 Acute otitis media 02/22/2024 Assessment & Plan (02/22/2024 10:14 AM EDT): Drink plenty of fluids and rest Alternate acetaminophen and ibuprofen PRN Augmentin for 7 days Dental abscess 01/07/2024 Dental calculus 01/07/2024 Periodontal disease 01/07/2024 Vitamin D deficiency 08/30/2018 07/28/2023 Hypercholesterolemia 08/06/2015 07/28/2023 Assessment & Plan (12/08/2024 12:07 PM EST): -Continue rosuvastatin 5 mg despite stable lipids in 2021 as primary prevention -Discussed repeat labs at follow-up visit in 6 months Assessment & Plan (09/08/2024 1:15 PM EST): -labs completed May 2022 reveal normal lipid levels -continue current crestor 5 mg -Plan to recheck at follow-up appointment Encounters Date Type Department Care Team Description 12/25/2024 1:00 PM EDT Office Visit [facility] AD[facility] [address] [place] [address] Kinza Pena DMD 12/15/2024 Population Health Risk Score [facility] [address] [phone] Provider, Population Health Generic 12/11/2024 11:15 AM EDT Office Visit [facility] [address] [place] [address] Kinza Pena DMD 12/08/2024 10:00 AM EST Office Visit [facility] [address] [place] [address] Diana Clements NP Routine adult health maintenance (Primary Dx); Prediabetes; Dietary counseling; Exercise counseling; Hypercholesterolem ia 12/08/2024 Travel 12/06/2024 Telephone [facility] [address] [place] [address] Ashlyn Johnson MA chartprep 12/05/2024 8:00 AM EST Office Visit [facility]ULT D[facility] [address] [place] [address] Tarun Lopez DDS Retained dental root (Primary Dx) 11/23/2024 10:00 AM EST Office Visit [facility] [address] [place] [address] Tarun Lopez DDS Lateral radicular cyst (Primary Dx); Periodontal disease 10/20/2024 Telephone [facility] [address] [place] [address] Diana Clements NP [employer] 10/05/2024 Telephone [facility] [address] [place] [address] Diana Clements NP december recall from Last 3 Months Immunizations Name Administration Dates Next Due Influenza Injectable Quadriv alant Preservative Free IIV4 MDCK 06/30/2023 Influenza injectable quadrivalent preservative f ree 07/14/2022 Influenza, seasonal, injectable, preservative fr ee 08/09/2024 Pfizer Covid-19 Vaccine 12+ 08/09/2024 Tdap 07/10/2015 Zoster, Recombinant 06/30/2023,04/28/2023 Family History Medical History Relation Name Comments Hypertension Father Alzheimer's disease Mother Hypertension Mother Cancer Mother's Brother Breast cancer Paternal Cousin No Known Problems Sister Relation Name Status Comments Father Alive Mother Alive Mother's Brother Paternal Cousin Other Paternal Grandmother Alive Sister Social History Tobacco Use Types Packs/Day Years Used Date Smoking Tobacco: Never Passive Smoke Exposure: Never Smokeless Tobacco: Never Tobacco Cessation:Counseling Given: Not Answered Alcohol Use Standard Drinks/Week Comments Yes 0 [...] the past 12 months, has t he [employer] gas, oil or water company threatened to [...] Orientation Straight 08/03/2022 10 :17 AM EDT Last Filed Vital Signs Vital Sign Reading Time Taken Comments Blood Pressure 110/70 12/25/2024 1:03 PM EDT Pulse 82 12/08/2024 9:59 AM EST Temperature [...] Mass Index 27.13 12/08/2024 9:59 AM EST Plan of Treatment Upcoming Encounters Date Type Department Care Team (Late st Contact Info) Description 12/28/2024 8:00 AM EDT Office Visit [facility] [address] [place] [address] Tarun Lopez, DDS [address] [place] [address] 01/08/2025 3:30 PM EDT Office Visit [facility] [address] [place] [address] Sim Emerson, DMD [address] [place] [address] Health Maintenance Due Date Last Done Comments CT Colonography 1970 Colonoscopy 1968 Colorectal Cancer Screening 1970 FIT DNA/Cologuard 1970 FIT 1970 FOBT 1970 Sigmoidoscopy 1970 Hepatitis B Vaccines (1 of 3 - 19+ 3-dose series) 1987 Dental Prophylaxis 05/08/2011 11/07/2010, 0 04/28/2010, 08/20/2009 Pneumococcal Vaccine: 50+ Years (1 of 1 - PCV) 2018 Mammogram 10/18/2023 10/18/2021, 11/2 10/2019, 08/21/2019, Additional history exists Dental Oral Exam 07/09/2024 01/07/2024 Dental X-Ray: Bitewings 01/07/2025 01/07/2024, 04/28 DTaP/Tdap/Td Vaccines (2 - Td or Tdap) 07/10/2025 07/10/2015 Alcohol/Substance Use Screening 08/09/2025 08/09/2024 Depression Screening 08/09/2025 08/09/2024, 08/09/20 HIV Screening 08/09/2025 Postponed from 1968 (Patient Refused) Hepatitis C Screening 08/09/2025 Postpo sixto from 1986 (Patient Refused) SDOH Screening 08/09/2025 08/09/2024 Diabetes: Hemoglobin A1C 09/08/2025 024, 05/05/2022, 12/15/2021 Tobacco Screening 12/25/2025 12/25/2024 Cervical Cancer Screening 08/23/2026 HPV/Cotest 08/23/2026 08/23/2023, 04/2018, 08/05/2017, Additional history exists Pap Smear 08/23/2026 08/23/2023 Dental X-Ray: Full Mouth 01/07/2027 01/07/2024 RSV Patients and Patients Aged 60 years or older (1 - 1-dose 75+ series) 2043 Zoster Vaccines Completed 06/30/2023, 04/28/2023 COVID-19 Vaccine Completed 08/09/2024, 11/2021, 05/21/2021, Additional history exists Influenza Vaccine Completed 08/09/2024, , 07/14/2022 HIB Vaccines Aged Out No longer eligi [...] patient's age to complete this topic Meningococcal Vaccine Aged Out No neetu elvia eligible based on patient's age to complete this topic RSV under 20 months Aged Out No longe r eligible based on patient's age to complete this topic Rotavirus Vaccines Aged Out No longer eligible based on patient's age to complete this topic Procedures Procedure Name Priority Date/Time Associated Diagnosis Comments CASE PRESENTATION, DETAILED AND EXTENSIVE TREATMENT PLANNING Routine 12/25/2024 1:00 PM EDT 30 ENDO - CLEAN AND SHAPE Routine 12/25/2024 1:00 PM EDT CASE PRESENTATION, DETAILED AND EXTENSIVE TREATMENT PLANNING Routine 12/11/2024 11:15 AM EDT CONSULTATION - DIAGNOSTIC SERVICE PROVIDED BY DENTIST OR PHYSICIAN OTHER THAN REQUESTING DENTIST OR PHYSICIAN Routine 12/11/2024 11:15 AM EDT CASE PRESENTATION, DETAILED AND EXTENSIVE TREATMENT PLANNING Routine 12/05/2024 8:00 AM EST 13 REMOVAL OF RESIDUAL TOOTH ROOTS (CUTTING PROCEDURE) Routine 12/05/2024 8:00 AM EST CASE PRESENTATION, DETAILED AND EXTENSIVE TREATMENT PLANNING Routine 11/23/2024 10:00 AM EST INCISIONAL BIOPSY OF ORAL TISSUE-SOFT Routine 11/23/2024 10:00 AM EST 28 EXTRACTION, ERUPTED TOOTH OR EXPOSED ROOT (ELEVATION/FORCEPS REMOVAL) Routine 11/23/2024 10:00 AM EST HEMOGLOBIN A1C Routine 09/08/2024 11:35 AM EST Prediabetes INTRAORAL - COMPLETE SERIES OF RADIOGRAPHIC IMAGES Routine 01/07/2024 10:00 AM EDT Dental abscess Dental calculus Periodontal disease PERIODIC ORAL EVALUATION - ESTABLISHED PATIENT Routine 01/07/2024 10:00 AM EDT HPV MRNA E6/E7 REFLEX TO HPV 16, 18/45 Routine 08/23/2023 9:13 AM EST PAP SMEAR Routine 08/23/2023 9:13 AM EST MAMMOGRAM GENERIC Routine 10/18/2021 9:2 5 AM EST PROPHYLAXIS - ADULT Routine 11/07/2010 1 2:00 AM EST from Last 3 Months or Most Recently Relevant to Health Maintenance Results * (ABNORMAL) Hemoglobin A1c (09/08/2024 11:35 AM EST) Hemoglobin A1c 6.1(H) <6.0 % [facility] Comment:Hemoglobin A1C Refer ence Range Adults: 4.8 - 6.0 % Non diabetic: < 6.0 % Goal: < 7.0 %Additional Action Suggested: > 8.0 %Note: Hemoglobin A1c results are invalid for patients with abnormal amounts of HbF. Blood transfusions may impact the HbA1c concentration in the patient sample. Estimated Average Glucose 128 mg/dL [facility] Comment:eAG = Estimated ave rage glucose which is %A1C expressed asaverage glucose, using the formula of the B1U-SptjdqoRlxgatc Glucose study (ADAG), Diabetes Care, Vol.31,#8,May. 2007 Blood Venous blood specimen / Unknown 09/08/2024 11:35 AM EST 09/08/2024 12:55 PM EST Diana Clements NP LAB BLOOD ORDERABLES Final Resu lt [facility] [address] [place] [address] [phone] * HPV mRNA E6/E7 w/Reflex to HPV Genotypes 16, 18/45 (08/23/2023 9:13 AM EST) HPV nRNA E6/E7 Not Detected Not Detected [facility] Comment:Methodology: Transcr iption-Mediated AmplificationThis assay detects E6/E7 viral messenger RNA (mRNA) from 14high-risk HPV types (16,18,31,33,35,39,45,51,52,56,58,59,66,68).Cervical sources are required for HPV testing.If a vaginal source from a patient who has had atotal hysterectomy with removal of cervix wassubmitted, please contact the testing laboratoryfor alternative testing options.For additional information, please refer tohttp://education.NeuroPace/faq/LOK366k5(This link if provided for information/educational purposes only.)THIS TEST WAS PERFORMED AT:[employer] [place] [phone] FRANCO MD HPV mRNA E6/E7 [facility] HPV 16 RNA [facility] HPV 18/45 RNA [facility] 08/23/2023 9:13 AM EST 08/24/2023 10:30 AM EST Kaley ACEVES LAB CYTOLOGY ORDERABLES F inal Result [facility] [address] [place] [address] [phone] * Pap Smear (08/23/2023 9:13 AM EST) 08/23/2023 9:13 AM EST 08/24/2023 10:30 AM EST Narrative [facility] - 09/07/2023 7:57 AM EST ----- ------- Name: Cece Simons ? Age/Sex: 52/F ? : 1970 Unit#: [id number] ?? Attend Dr: KALEY BORRERO CNM ?Re08/23/23 ?Status: DEP REF ? Location: HO.HHCLNP ? Disch: ? ----- ------- SPEC : [id number] ?RECD: 08/24/23-0 ? STATUS: ??SOUT ? REQ NUM: [id number] ? LUX: 08/23/23 ? SUBM DR: KALEY BORRERO CNM ? ENTERED: ??08/24/23 ?SP TYPE: Pap Smr ?OTHR DR: ? ORDERED: ??Pap Smear ? Interpretation ?? Satisfactory for evaluation. ?? Negative for intraepithelial lesion or malignancy. ?HPV mRNA E6/E7: ?NOT DETECTED ? This assay detects E6/E7 viral messenger RNA (mRNA) from 14 high-risk HPV types (16, 18, ?? 31, 33, 35, 39, 45, 51, 52, 56, 58, 59, 66, 68) ?? HPV testing performed by [employer], [place], [place]. ??See reference laboratory ?? portion of the EMR for entire report. ?Clinical Information LMP: Unknown date Previous PAP test: Unknown date, NIL/HPV neg preceded by NIL/HPV pos x 2 ? Material Received ?? ThinPrep-Cervical ----- ------- Signed (signature on file) WALDO Dos Santos ([facility]) 09/07/23 0757 ? ----- ------- ? END OF REPORT ? us Kaley Borrero [facility] CYTOLOGY ORDERABLES F inal Result [facility] [address] [place] [address] [phone] * Mammography Report 1 (10/18/2021 9:25 AM EST) Anatomical Region Laterality Modality Breast Bilateral Mammography 10/18/2021 9:25 AM EST Narrative 10/20/2021 12:27 PM EST Refer to the Notes tab for result details [facility] Procedure: Mammography Report 1 Procedure Note Provider, MD Dimas - 12/27/2022 Refer to the Notes tab for result details [facility] Procedure: Mammography Report 1 us Karen Carrasco MD IMG BI PROCEDURES Final Resu lt from Last 3 Months or Most Recently Relevant to Health Maintenance [facility] AD[place] Care Teams Gill Box Fixer Relationship Specialty Start Date End Date Diana Clements NP [address] [place] [id number] PCP - General Family Medicine 07/20/24
--- OUTSIDE RECORDS SUMMARY | 2024-12-27 11:27 | XMS_ITS | Encounter Summary ---
Author Organization [employer] Address [address] [facility] 7[address] [place] [address] Care Team Providers Care Director Behavioral Health Name Role Phone Diana Clements NP Primary Care Provider [phone] Reason for Visit * Reason Comments endo Endo #30 Encounter Details Date Type Department Care Team ([facility] st Contact Info) Description 12/25/2024 1:00 PM EDT Office Visit [facility] ADULT DENTAL [address] [place] [phone] Kinza Pena DMD Social History Tobacco Use [...] Pressure 110/70 12/25/2024 1:03 PM EDT Pulse - - Temperature - - Respiratory Rate - - Oxygen Saturation - - Inhaled Oxygen Concentration - - Weight - - Height - - Body Mass Index - - documented in this encounter Progress Notes * Kinza Pena DMD - 12/25/2024 1:00 PM EDT Dental procedures in this visit [id number] - ENDO - CLEAN AND SHAPE 30 (Completed) Service provider: Kinza Pena DMD Billing provider: Sim Emerson DMD [id number] - CASE PRESENTATION, DETAILED AND EXTENSIVE TREATMENT PLANNING (Completed) Service provider: Kinza Pena DMD Billing provider: Sim Emerson DMD Patient ID: Cece Luna is a 54 y.o. female. Time Out: Date: 12/25/2024 Location: [facility] Tooth: #30 Procedure: Root Canal Verified the above with patient, assistant federal public defender, and provider. Confirmed via patient's chart, intraorally and by radiographs. Board Certified Family Physician: Yes. Language: Cape Verdean. Board Certified Family Physician's Name: Josselin Urbina Root Canal Treatment initiated on #[address] Kinza Pena DMD Risk, benefits, and alternatives discussed with the patient. CONSENT FORM INITIALED & SIGNED BY THE PATIENT AND COUNTERSIGNED BY Dr. Kinza Pena DMD Medical history: Reviewed in EHR Vitals: Blood pressure 110/70. Allergies: Reviewed in EHR Medications: Reviewed in EHR - LA: 20% topical benzocaine; local infiltration with 1 carpule 4% septocaine/articaine 1:100,000 epinephrine - Rubber dam placed and tooth isolated. - Decay removed. - Access opening done. - MB, ML and D canals found. - Canal length - D: 21 mm ; no WL or instrumentation obtained for MB or ML due to root constrictions. - Last HAND FILE used at apex on D root: #20 - Irrigation done using Sodium Hypochlorite - CaOH placed in canals. - Cotton pellet placed. - Temporary cheondoism done using IRM. - B mass still present and fluctuant. Drainage hole was made and drained. - Post op instructions given. - Rx: Amoxicillin All patient questions answered. Patient comfortable upon dismissal. NV: Complete RCT #[address] Emerson Provider: Dr. Kinza Pena DMD Antenna Design Engineer: Josselin Urbina Supervising Dentist: Dr. Sim Emerson DMD * Sim Emerson DMD - 12/25/2024 1:00 PM EDT Reviewed. Sim Emerson DMD documented in this encounter Plan of Treatment Upcoming Encounters Date Type Department Care Team (Late st Contact Info) Description 12/28/2024 8:00 AM EDT Office Visit [facility] ADULT DENTAL [address] [place] [address] Tarun Lopez DDS [address] [place] [address] 01/08/2025 3:30 PM EDT Office Visit [facility] ADULT DENTAL [address] [place] [address] Sim Emerson DMD [address] [place] [address] documented as of this encounter Procedures Procedure Name Priority Date/Time Associated Diagnosis Comments 30 ENDO - CLEAN AND SHAPE Routine 12/25/2024 1:00 PM EDT CASE PRESENTATION, DETAILED AND EXTENSIVE TREATMENT PLANNING Routine 12/25/2024 1:00 PM EDT documented in this encounter Visit Diagnoses Not on filedocumented in this encounter Additional Health Concerns Assessment Noted Time PHQ-9 Depression Total Score: 0 08/09/20 9:06 AM EST documented as of this encounter Care Teams Director Behavioral Health Relationship Specialty Start Date End Date Diana Clements NP [address] [place] [phone] PCP - General Family Medicine 07/20/24 documented as of this encounter
== END 2024-12-27 10:02 | disposition home or self-care (01) ==
LOC: HO.MAMMO 10:01
PROVIDERS: PCP Nurse Practitioner; Visit Provider Registered Nurse
DX: Z12.31 Encounter for screening mammogram for malignant neoplasm of breast (principal)
CPT/HCPCS: 77063; 77067

== ENCOUNTER → 2024-12-27 10:15 | Outpatient (BNV) | payer MEDICAID, SELFPAY | PROVIDERS: PCP Nurse Practitioner; Visit Provider Internal Medicine | DX: Z12.31 Encounter for screening mammogram for malignant neoplasm of breast (principal) | CPT/HCPCS: 77063; 77067 ==

== ENCOUNTER 2025-09-13 14:12 | Outpatient (REF) | payer MEDICAID, SELFPAY ==
--- OUTSIDE RECORDS SUMMARY | 2025-09-13 21:43 | XMS_ITS | Clinical Summary ---
Author Organization [address] [facility] Address [address] [place] [address] Phone Care Team Providers Care Stock Transfer Clerk Name Role Phone Physician, No Pcp Primary Care Provider Unavaila ble Social History Tobacco Use Types Packs/Day Years Used Date Smoking Tobacco: Never Assessed Comments Unknown Sex and Gender Information Value Date Recorded Sex Assigned at Not on file Legal Sex Female 12:39 PM EST Gender Identity Not on file Sexual Orientation Not on file Plan of Treatment Health Maintenance Due Date Last Done Comments Breast Cancer Screening 1968 Colorectal Cancer Screening: Colonoscopy 1968 DTaP,Tdap,and Td Vaccines (1 - Tdap) 1987 Hepatitis B Vaccines (1 of 3 - 19+ 3-dose series) 1987 Cervical Cancer Screening: P ap Smear 1989 Pneumococcal Vaccine: 50+ Ye ars (1 of 1 - PCV) 2018 Zoster Vaccines (1 of 2) 2018 Depression Screening 10/04/2024 HIV Screening 11/24/2024 Hepatitis C Screening 11/24/2024 Social Influencers of Health Screening 11/24/2024 COVID-19 Vaccine (1 - 2024-2 6 season) 2025 Influenza Vaccine (#1) 2025 RSV Immunization Adult Patie nts (1 - 1-dose 75+ series) 2043 HIB Vaccines Aged Out No longer eligi [...] age to complete this topic Meningococcal B Vaccine Aged Out No l onger eligible based on patient's age to complete this topic RSV Immunization Patients Un anabela 20 months Aged Out No longer eligible b ased on patient's age to complete this topic Varicella Vaccines Aged Out No longer eligible based on patient's age to complete this topic Insurance MEDICAID - [place] Care Teams Stock Transfer Clerk Relationship Specialty Start Date End Date Physician, No Pcp PCP - General 11/27/24
--- OUTSIDE RECORDS SUMMARY | 2025-09-13 21:43 | XMS_ITS | Encounter Summary ---
Author Organization [employer] Address [address] [facility] 7[address] [place] [address] Care Team Providers Care Sebd Teacher Name Role Phone Diana Clements NP Primary Care Provider [phone] Reason for Visit * Reason Onset Date Comments Lab Orders 09/13/2025 Encounter Details Date Type Department Care Team ([facility] Contact Info) Description 09/13/2025 Telephone [facility] [address] [place] [address] Diana Clements NP [address] [place] [address] Lab Orders Social History Tobacco Use Types Packs/Day Years [...] encounter Miscellaneous Notes * Telephone Encounter - Estefany Kuhn RN - 09/13/2025 1:15 PM EST TC placed to pt via S freelance interpreter/translator (Gina ID#[id number]) to inform and advise TSPOT lab order placed. Advised pt lab order placed and they are able to go to the lab at their convenience. Pt verbalized understanding and denies questions at this time. * Telephone Encounter - Kortney Vitale - 09/13/2025 12:41 PM EST Tc from pt requesting an lab order for TB test for work Contact pt at [phone] documented in this encounter Plan of Treatment Scheduled Orders Name Type Priority Associated Diagnoses Orde r Schedule T-SPOT .TB Lab Routine Screening-pulmonary TB Expected: 09/13/2025 (Approximate), Expires: 09/13/2026 documented as of this encounter Visit Diagnoses Diagnosis Screening-pulmonary TB- Primary Screening examination for pulmonary tuberculosis documented in this encounter Additional Health Concerns Assessment Noted Time PHQ-9 Depression Total Score: 0 08/09/20 24 9:06 AM EST documented as of this encounter Care Teams Sebd Teacher Relationship Specialty Start Date End Date Diana Clements NP [address] [place] [phone] PCP - General Family Medicine 07/20/24 documented as of this encounter
--- OUTSIDE RECORDS SUMMARY | 2025-09-13 21:43 | XMS_ITS | Encounter Summary ---
Author Organization [facility] Address [address] [place] [address] Care Team Providers Care Honey Liquefier Name Role Phone Physician, No Pcp Primary Care Provider Unavaila ble Encounter Details Date Type Department Care Team (Late st Contact Info) Description 11/24/2024 Lab Requisition [facility] Lab [address] [facility] [place] [address] Tarun Lopez DDS [address] [place] [address] Cyst of oral region, unspecified [...] stain: negative (Control appropriate) 12:16 PM EST [facility] at 1216 EST Clinical Information Oral mucosa, buccal cervical of t. #28 54 y.o. female - no recent illness, injury or hospitalization Cyst found on the vestibular ridge/buccal of #28 12:16 PM EST [facility] Gross Description A. Oral Cavity, vestibular ridge/buccal of #28 cyst: Labeled oral mucosa . Received in formalin is a 1.1 x 0.5 x 0.3 cm white-stewart rubbery tissue fragment surface by a smooth, glistening mucosa. The specimen is inked blue and bisected. The cut surfaces are jwi-hqen-wwc solid. The specimen is wrapped in paper and entirely submitted one cassette, two pieces, multiple levels on one slide. KIMMIE 12:16 PM EST [facility] Disclaimer NOTE: The immunohistochemical tests and [...] fixed and paraffin embedded. 12:16 PM EST [facility] Tissue Oral cavity structure / Unknown 11/23/2024 11/24/2024 12:49 PM EST Tarun Lopez DDS LAB PATHOLOGY ORDERABLES Fin al Result [facility] [address] [place] [address], documented in this encounter Visit Diagnoses Diagnosis Cyst of oral region, unspecified documented in this encounter Care Teams Honey Liquefier Relationship Specialty Start Date End Date Physician, No Pcp PCP - General 11/27/24 documented as of this encounter
--- OUTSIDE RECORDS SUMMARY | 2025-09-13 21:43 | XMS_ITS | Clinical Summary ---
Author Organization [employer] Address [address] [facility] 7[address] [place] [address] Care Team Providers Care Reservation Clerk Name Role Phone Diana Clements NP Primary Care Provider [phone] Allergies Active Allergy Reactions Criticality Noted Date Comments Atorvastatin 12/22/2021 Other reaction(s): Myalgias Patient denies allergy to the medication Medications rosuvastatin (Crestor) 5 MG tabletIndications:H yperlipidemia, unspecified hyperlipidemia type TAKE 1 TABLET BY MOUTH AT BEDTIME 90 tablet 1 Active Active Problems Problem Noted Date Diagnosed Date Retained dental root 12/05/2024 Lateral radicular cyst 11/23/2024 Hot flashes due to menopause 09/08/2024 Assessment [...] cancer. No family history of colon cancer. Dental abscess 01/07/2024 Dental plaque 01/07/2024 Periodontal disease 01/07/2024 Vitamin D deficiency [...] mg -Plan to recheck at follow-up appointment Resolved Problems Problem Noted Date Diagnosed Date Resolved Date Encounter for routine adult health examination without abnormal findings 09/08/2024 Encounter for annual routine gynecological examination 08/09/2024 07/23/2025 Assessment & Plan (08/09/2024 9:37 AM EST): [...] and ibuprofen PRN Augmentin for 7 days Encounters Date Type Department Care Team Description 09/13/2025 Telephone [facility] [address] [place] [address] [phone] Diana Clements NP Lab Orders 07/23/2025 1:30 PM EDT Office Visit [facility] [address] [place] [phone] Jaylyn Leger MD Physical exam, pre-employment (Primary Dx); Encounter for immunization 07/23/2025 Travel 06/27/2025 Patient Outreach [facility] [address] [place] [address] Diana Clements NP Pre-visit Planning ([facility] unable to reach [facility] ) from Last 3 Months Immunizations Immunization Administration Dates Next Due Influenza Injectable Quadriv alant Preservative Free IIV4 MDCK 06/30/2023 Influenza injectable quadrivalent preservative f ree 07/14/2022 Influenza, seasonal, injectable, preservative fr ee 07/23/2025,08/09/2024 Pfizer Covid-19 Vaccine 12+ 08/09/2024 Pneumococcal Conjugate PCV 20 07/23/2025 Tdap 07/23/2025,07/10/2015 Zoster, Recombinant 06/30/2023,04/28/2023 Family History Medical History [...] your housing situation today? I have lupe rissa 08/09/[address] you li [...] Sign Reading Time Taken Comments Blood Pressure 120/80 07/23/2025 1:40 PM EDT Pulse 90 07/23/2025 1:40 PM EDT Temperature 36.7 C (98.1 F) 07/23/2025 1:40 PM EDT Respiratory Rate 22 07/23/2025 1:40 PM EDT Oxygen Saturation 97% 12/08/2024 9:59 AM EST Inhaled Oxygen Concentration - - Weight 64.3 kg (141 lb 12.8 oz) 07/23/2025 1:40 PM EDT Height 152.4 cm (5') 07/23/2025 1:40 PM EDT Body Mass Index 27.69 07/23/2025 1:40 PM EDT Plan of Treatment Health Maintenance Due Date Last Done Comments CT Colonography 1968 Colonoscopy 1968 FIT DNA/Cologuard 1968 FOBT 1968 HIV Screening 1968 Sigmoidoscopy 1968 Disability Screening 1968 Alcohol/Substance Use Screening 1980 Hepatitis C Screening 1986 Hepatitis B Vaccines (1 of 3 - 19+ 3-dose series) 1987 Dental Prophylaxis 05/08/2011 11/07/2010, 0 04/28/2010, 08/20/2009 Colorectal Cancer Screening 12/23/2022 FIT 12/23/2022 12/23/2021 COVID-19 Vaccine ( season) 2025 08/09/2024, 05/05/2022, 05/21/2021, Additional history exists Dental Oral Exam 07/01/2025 12/28/2024, 01/07/2024 Depression Screening 08/09/2025 08/09/2024, 08/09/20 24 SDOH Screening 08/09/2025 08/09/2024 Diabetes: Hemoglobin A1C 09/08/2025 024, 05/05/2022, 12/15/2021 Dental X-Ray: Bitewings 12/29/2025 12/29/19 25, 01/07/2024, 04/28/2010 Tobacco Screening 07/23/2026 07/23/2025 Cervical Cancer Screening 08/23/2026 HPV/Cotest 08/23/2026 08/23/2023, 110 04/2018, 08/05/2017, Additional history exists Pap Smear 08/23/2026 08/23/2023 Mammogram 12/27/2026 12/27/2024, 10/04, 08/24/2020, Additional history exists Dental X-Ray: Full Mouth 12/30/2027 12/28/2024, 040 02/2024 DTaP/Tdap/Td Vaccines (3 - Td or Tdap) 07/23/2035 07/23/2025, 07/10/2015 RSV Patients and Patients Aged 60 years or older (1 - 1-dose 75+ series) 2043 Zoster Vaccines Completed 06/30/2023, 04/28/2023 Influenza Vaccine Completed 07/23/2025, , 06/30/2023, Additional history exists Pneumococcal Vaccine: 50+ Years Completed 07/23/2025 HIB Vaccines Aged Out No longer eligi [...] Procedure Name Priority Date/Time Associated Diagnosis Comments INTRAORAL - COMPLETE SERIES OF RADIOGRAPHIC IMAGES Routine 12/28/2024 8:00 AM EDT PERIODIC ORAL EVALUATION - ESTABLISHED PATIENT Routine 12/28/2024 8:00 AM EDT BI MAMMOGRAM SCREENING TOMOSYNTHESIS BILATERAL Routine 12/27/2024 10:15 AM EDT HEMOGLOBIN A1C Routine 09/08/2024 11:35 AM EST Prediabetes HPV MRNA E6/E7 REFLEX TO HPV 16, 18/45 Routine 08/23/2023 9:13 AM EST PAP SMEAR Routine 08/23/2023 9:13 AM EST PROPHYLAXIS - ADULT Routine 11/07/2010 1 2:00 AM EST from Last 3 Months or Most Recently Relevant to Health Maintenance Results * BI Mammogram Screening Tomosynthesis Bilateral (12/27/2024 10:15 AM EDT) Anatomical Region Laterality Modality Breast Bilateral Mammography 12/27/2024 10:1 5 AM EDT Narrative 01/02/2025 5:17 PM EDT [facility] [address] [place] [address] Mammography Report Signed Patient: Cece Simons MR#: [id number] 59 : 1970 Acct:[id number] Age/Sex: 54 / F ADM Date: 12/27/24 Loc: HO.MAMMO Attending Dr: Amie Pop TELEPHONE OPERATOR CHIEF Ordering Physician: Amie Pop Results: 2Benig n Findings Date of Service: 12/27/24 Follow Up: 1 Year From [facility] Mammogram Procedure(s): MM tomosynthesis screening BI Accession Number(s): [id number] cc: Diana Clements; Amie Pop TELEPHONE OPERATOR CHIEF EXAMINATION: MM SCREENING DIGITAL BREAST TOMOSYNTHESIS, BILATERAL CLINICAL INFORMATION: Screening. Asymptomatic. COMPARISON: Mammography: Comparison is made with available priors TECHNIQUE: Digital breast mammography with tomosynthesis is performed in both the craniocaudal and mediolateral oblique views along with computer-aided detection (CAD). FINDINGS: The breasts are extremely dense, which lowers the sensitivity of mammography (ACR BI-RADS breast composition Category d). Right marker clip. There are no significant masses, abnormal calcifications, or other abnormalities. MM/MM tomosynthesis screening BI IMPRESSION: No mammographic evidence of malignancy. ASSESSMENT: BI-RADS BI-RADS 2 - Benign Findings RECOMMENDATION: Routine annual mammography screening. 1 year F/U This examination should not preclude the clinical evaluation of a suspicious palpable abnormality. This patient's information was entered into a reminder system with a target due date for their next mammogram. Electronically signed by: Amy Geller DO 01/02/2025 05:14 PM EDT RP Dictated By: Amy Geller DO Signed By: <Electronically signed by Amy Geller DO in OV> 01/02/25 1714 DD/ 1015 TD/TT: 12/27/24 1030 Non Destructive Evaluation Manager: Procedure Note Donotuseinterpreter, Image - [facility]/02/20[facility] [address] [place] [address] Mammography Report Signed Patient: Cece Simons YMR#: [id number] 59 : 1970Acct:[id number] Age/Sex: 54 / FADM Date: 12/27/24 Loc: HO.MAMMO Attending Dr: mAie Pop TELEPHONE OPERATOR CHIEF Ordering Physician: Amie Pop FNPResults: 2Benig n Findings Date of Service: 12/27/24Follow Up: 1 Year From Orig ina Mammogram Procedure(s): MM tomosynthesis screening BI Accession Number(s): [id number] cc: Diana Clements; Amie Pop TELEPHONE OPERATOR CHIEF EXAMINATION: MM SCREENING DIGITAL BREAST TOMOSYNTHESIS, BILATERAL CLINICAL INFORMATION: Screening. Asymptomatic. COMPARISON: Mammography: Comparison is made with available priors TECHNIQUE: Digital breast mammography with tomosynthesis is performed in both the craniocaudal and mediolateral oblique views along with computer-aided detection (CAD). FINDINGS: The breasts are extremely dense, which lowers the sensitivity of mammography (ACR BI-RADS breast composition Category d). Right marker clip. There are no significant masses, abnormal calcifications, or other abnormalities. MM/MM tomosynthesis screening BI IMPRESSION: No mammographic evidence of malignancy. ASSESSMENT: BI-RADS BI-RADS 2 - Benign Findings RECOMMENDATION: Routine annual mammography screening. 1 year F/U This examination should not preclude the clinical evaluation of a suspicious palpable abnormality. This patient's information was entered into a reminder system with a target due date for their next mammogram. Electronically signed by: Amy Geller DO 01/02/2025 05:14 PM EDT RP Dictated By: Amy Geller DO Signed By: <Electronically signed by Amy Geller DO in OV> 01/02/25 1714 DD/ 1015 TD/TT: 12/27/24 1030 Non Destructive Evaluation Manager: Amie Pop TELEPHONE OPERATOR CHIEF IMG BI PROCEDURES Final Result * (ABNORMAL) Hemoglobin A1c (09/08/2024 11:35 AM EST) Hemoglobin A1c 6.1(H) <6.0 % [facility] Comment:Hemoglobin A1C Refer ence Range Adults: 4.8 - 6.0 % Non diabetic: < 6.0 % Goal: < 7.0 %Additional Action Suggested: > 8.0 %Note: Hemoglobin A1c results are invalid for patients with abnormal amounts of HbF. Blood transfusions may impact the HbA1c concentration in the patient sample. Estimated Average Glucose 128 mg/dL [facility] Comment:eAG = Estimated ave rage glucose which is %A1C expressed asaverage glucose, using the formula of the Z3W-VrbpdwcAzullaw Glucose study (ADAG), Diabetes Care, Vol.31,#8,May. 2007 Blood Venous blood specimen / Unknown 09/08/2024 11:35 AM EST 09/08/2024 12:55 PM EST Diana Clements [employer] LAB BLOOD ORDERABLES Final Resu lt [facility] [address] [place] [phone] * HPV mRNA E6/E7 w/Reflex to HPV Genotypes 16, 18/45 (08/23/2023 9:13 AM EST) HPV nRNA E6/E7 Not Detected Not Detected [facility] Comment:Methodology: Transcr iption-Mediated AmplificationThis assay detects E6/E7 viral messenger RNA (mRNA) from 14high-risk HPV types (16,18,31,33,35,39,45,51,52,56,58,59,66,68).Cervical sources are required for HPV testing.If a vaginal source from a patient who has had atotal hysterectomy with removal of cervix wassubmitted, please contact the testing laboratoryfor alternative testing options.For additional information, please refer tohttp://education.Mobclix/faq/VDM361g5(This link if provided for information/educational purposes only.)THIS TEST WAS PERFORMED AT:[facility] [place] [phone] FRANCO MD HPV mRNA E6/E7 [facility] HPV 16 RNA [facility] HPV 18/45 RNA [facility] 08/23/2023 9:13 AM EST 08/24/2023 10:30 AM EST Kaley Borrero CNM LAB CYTOLOGY ORDERABLES F inal Result Performing Organization Address City/State/[facility] Co de Phone Number [facility] [address] [place] [phone] * Pap Smear (08/23/2023 9:13 AM EST) 08/23/2023 9:13 AM EST 08/24/2023 10:30 AM EST Narrative [facility] - 09/07/2023 7:57 AM EST ----- ------- Name: Cece Simons Age/Sex: 52/F : 1970 Unit#: [id number] Attend Dr: KALEY BORRERO CNM Re08/23/23 Status: DEP [facility] Disch: ----- ------- SPEC : [id number] RECD: 08/24/23 STATUS: JOJO SALCIDO NUM: [id number] LUX: 08/23/[address] [facility] [address]: KALEY BORRERO [facility] ENTERED: 08/24/23 SP TYPE: Pap Smr OT DR: ORDERED: Pap Smear Interpretation Satisfactory for evaluation. Negative for intraepithelial lesion or malignancy. HPV mRNA E6/E7: NOT DETECTED This assay detects E6/E7 viral messenger RNA (mRNA) from 14 high-risk HPV types (16, 18, 31, 33, 35, 39, 45, 51, 52, 56, 58, 59, 66, 68) HPV testing performed by [facility], [place], [place]. See reference laboratory portion of the EMR for entire report. Clinical Information LMP: Unknown date Previous PAP test: Unknown date, NIL/HPV neg preceded by NIL/HPV pos x 2 Material Received ThinPrep-Cervical ----- ------- Signed (signature on file) WALDO Dos Santos (ASC) 09/07/23 0757 ----- ------- END OF REPORT Kaley ACEVES LAB CYTOLOGY ORDERABLES F inal Result [facility] [address] [place] [phone] from Last 3 Months or Most Recently Relevant to Health Maintenance Insurance [facility] C3 DENTAL-[facility] MEDICAID STAND ADULT Care Teams Reservation Clerk Relationship Specialty Start Date End Date Diana Clements NP [address] [place] [address] PCP - General Family Medicine 07/20/24
== END 2025-09-13 14:13 ==
LOC: HO.HHCL 14:12
PROVIDERS: PCP Nurse Practitioner; Visit Provider Nurse Practitioner
DX: Z11.1 Encounter for screening for respiratory tuberculosis (principal)
CPT/HCPCS: 36415; 86481